=== PATIENT | female | born 1980 | race Caucasian/White ===

== ENCOUNTER 2022-02-14 17:48 | Emergency (ER) | payer SELFPAY ==
[2022-02-14 19:49] LABS: BASOPHIL 0.8 % (0-2); EOSINOPHIL 3.2 % (0-5); HCT 43.1 % (37.0-47.0); HGB 14.4 g/dl (12.5-16.0); MCH 30.3 pg (25.0-31.0); MCHC 33.4 g/dL (32.0-36.0); MCV 90.7 fL (78.0-100.0); MONOCYTE 3.7 % (0-12); MPV 9.3 fL (6.0-9.5); NEUTROPHIL 54.6 % (41-80); NRBC 0; PLT 323 K/uL (150-400); RBC 4.75 M/uL (4.20-5.40); RDW 12.4 % (11.5-14.0); WBC 7.3 K/uL (4.0-10.5)
[2022-02-14 20:00] LABS: BILIRUBIN NEGATIVE (NEGATIVE); BLOOD NEGATIVE Ery/uL (NEGATIVE); CLARITY CLEAR (CLEAR); COLOR YELLOW (YELLOW); GLUCOSE (U) NORMAL (NORMAL); LEUKOCYTES NEGATIVE Leu/uL (NEGATIVE); NITRITE NEGATIVE (NEGATIVE); PROTEIN NEGATIVE (NEGATIVE); SPECIFIC GRAVITY <=1.005 (1.001-1.030); UROBILINOGEN 0.2 mg/dL (0.2-1.0); pH 5.5 (5.0-9.0)
[2022-02-14 20:17] LABS: ALBUMIN 3.8 g/dL (3.4-5.0); BILIRUBIN - TOTAL 0.3 mg/dL (0.2-1.0); BUN/CREAT RATIO (CALC) 18.2 RATIO; CREATININE 0.55 mg/dL (0.51-0.95); POTASSIUM 3.6 mmol/L (3.5-5.1); TOTAL PROTEIN 7.8 g/dL (6.4-8.2)
[2022-02-14] MEDS ORDERED: ONDANSETRON ODT4 MG PO (22:32)
[2022-02-14] MEDS ORDERED: NORCO 5-325 TA1 EACH PO (22:32)
== END 2022-02-14 22:50 | disposition home or self-care (01) ==
LOC: FER 17:48
PROVIDERS: Emergency Medicine
DX: K52.9 Noninfective gastroenteritis and colitis, unspecified (principal)
CPT/HCPCS: 36415; 80053; 81003; 83690; 84703; 85025; J1885; J2405; J7030; Q9967